=== PATIENT | female | born 1955 | race Caucasian/White ===

== ENCOUNTER 2017-05-14 14:45 | Inpatient (IN) | payer MEDICARE ==
[~2017-05-14] VITALS: Ht 157.5 cm; Wt 100.9 kg
[2017-05-14 14:57] VITALS: BP 140/88
--- NOTE | 2017-05-14 15:52 | Emergency Room Report ---
History of Present Illness Time Seen by 1510 Presenting Problem in Triage Pt arrived:Walked Presenting Problem:ABSCESS VAGINAL AREA BEGAN MONDAY Onset of symptoms date/time:/ or onset unknown for:MEDICAL HX UNKNOWN Treatment Prior to Arrival: [employer] Provided by: Sepsis Risk Assessment: Temp: 97.7 B/P: 140/88 MAP: 105 Pulse: 70 Resp: 18 Recent fever? N Clinical Suspician of Infection? N Mental Status: 1 - Regular (Normal Baseline) Sepsis Risk:Low Sepsis Risk Have you (or family members/close friends) recently traveled outside the [place]? N If Yes, where/when: Have you had exposure to infectious disease within the past month? N TB? Other? Specify: 62 years old white female diabetic nonsmoker who presented with progressive swelling of the RIGHT labia. She admits to having fever and chills but she denies checking her sugar lately. She has no vomiting no diarrhea. No vaginal discharge. She is not sexually active. Source patient, RN notes reviewed, family Exam Limitations no limitations ALLERGIES Coded Allergies: naproxen (From ALEVE) (Intermediate, P-[id number]/THROAT 10/29/16) oxytetracycline (From TERRAMYCIN) (Intermediate, 10/29/16) tetracycline (Intermediate, NA-SEDATION 10/29/16) Home Medications Active Scripts Lisinopril (Lisinopril 40MG) 40 MG PO BID #60 TAB Ref 1 Prov: 01/20/16 Fluoxetine Hcl (Fluoxetine) 20 MG PO DAILY #30 TAB Ref 2 Prov: 01/20/16 MUPIROCIN 2% (Bactroban Oint) 1 TWILA TP BID #1 TUBE Prov: 11/13/16 Reported Medications METFORMIN HCL (Metformin) 1,000 MG PO DAILY Montelukast Sodium 10 MG PO QHS #30 Rosuvastatin Calcium (Crestor) 10 MG PO QHS #30 Levothyroxine Sodium (Levothyroxine 0.137MG) 0.137 MG PO DAILY #60 History Medical History General CAD? No Angina: Yes MT: No Hypertension? Yes Hyperlipidemia? Yes CHF? Yes DVT? No PE? No COPD? Yes Asthma? Yes Anemia? No GERD? No Gastric ulcers? No GI Bleed? No Hernia? No Thyroid Problems? Yes Hypothyroidism? Yes CVA? No Seizures? No Diabetes? Yes Insulin Dependent: No Insulin Pump: No Home FSBS? Yes Renal Insuffiency? No End Stage Renal Disease? No UTI? No Stones? No BPH? No GB Disease: Yes Nephritic Syndrome? No Asplenia? No Hepatitis? No Sickle Cell Disease? No Arthritis? Yes Migraines? No Cataracts? No Glaucoma? No MRSA? No HIV? No TB? No Anxiety? No Depression? No Cancer? No More? No Immunization Hx DT/Tetanus 5-10 Years Ago Pneumonia Received In Past Surgical Hx Previous Surgery?Y GallbladdER Tubal Ligation Family History Family Hx Diabetes No CAD Yes Hypertension Yes Hyperlipidemia No Cancer Yes TB No Social History Smoking Hx Smoker: Never Smoker Tobacco: No Alcohol Alcohol: No Review of Systems All Other Systems Reviewed and Negative Constitutional no symptoms reported Eyes no symptoms reported ENT no symptoms reported. Respiratory no symptoms reported Cardiovascular no symptoms reported Gastrointestinal no symptoms reported Genitourinary see HPI. Musculoskeletal no symptoms reported Skin no symptoms reported Psychiatric/Neurological no symptoms reported Physical Exam Vital Signs Vital Signs Date Time Temp Pulse Resp B/P Pulse O2 O2 Flow FiO2 Ox Delivery Rate 05/14 1637 72 16 141/78 98 05/14 1457 97.7 70 18 140/88 98 - WBC >12,000 or <4,000 or 10% bands? 2 or more SIRS Criteria Met? B/P:140/88 MAP:105 Creatinine >2.0? UA output<0.5ml/kg/hr for 2 hrs? Platelet count >100,000? Lactate >2.0mmol/1? INR >1.2 or PTT > than 60 sec? Evidence of Organ Dysfunction? Provider documented clinical suspician of infection? N Sepsis Criteria Count: 0 Sepsis Risk: Low Sepsis Risk General Appearance normal appearance, WD/WN Eye Exam - bilateral eye normal exam, bilateral eye PERRL, bilateral eye EOMI Ear, Nose, Throat hearing grossly normal, normal ENT inspection Neck normal inspection, non-tender, supple, full range of motion Respiratory Status Yes: trachea midline, chest symmetrical, non tender chest. No: respiratory distress. Lung Sounds bilateral: normal breath sounds, lungs clear. Cardiovascular normal exam, regular rate/rhythm, no peripheral edema, no gallop, no JVD, no murmur, no rub, normal peripheral pulses Gastrointestinal normal bowel sounds, normal exam, non tender, soft, no organomegaly Pelvic 12 X 4 CM OBLONG right LABIAL SWELLING UNABLE TO ADVANCE FOR A PELVIC EXAM DUE TO DISCOMFORT AND PAIN, NO PALPABLE INGUINAL LYMPHADENOPATHY. Neurologic alert, director acute II-XII nml as tested, normal exam, oriented x 3 Skin intact, normal color, warm/dry Medical Decision Making LABS/Meds/Orders Pt receiving controlled substance in ED? No Results/Orders Laboratory Tests 05/14/17 1613: POC Glucose Pending 05/14/17 1610: Lactic Acid 1.7 05/14/17 1610: Sodium 131 L, Potassium 3.9, Chloride 95 L, Carbon Dioxide 28, BUN 11, Creatinine 1.1 H, Estimated Creat Clear 88, Estimated GFR (MDRD) 51 L, Glucose 319 H, Calcium 9.3, Total Bilirubin 0.7, AST 6 L, ALT 12, Alkaline Phosphatase 127 H, Total Protein 9.0 H, Albumin 2.9 L, Globulin 6.1 H, Albumin/Globulin Ratio 0.5 L, WBC 15.9 H, RBC 4.50, Hgb 12.9, Hct 39.4, MCV 87.7, RDW 12.4, Plt Count 355, MPV 8.0, Gran % 80.3 H, Gran # 12.8 H, Total Counted 100, Lymphocytes % 12.5, Monocytes % 5.1, Eosinophils % 1.8, Basophils % 0.3, Neutrophils 76, Band Neutrophils 1, Lymphocytes (Manual) 15, Lymphocytes # 2.0, Monocytes (Manual) 8, Monocytes # 0.8, Eosinophils # 0.3, Basophils # 0.0, Platelet Estimate NORMAL, PUBS MCHC 33.0, MCH 28.9 Current Medication Orders Sig/Jessica Start time Last Medication Dose Route Stop Time Status Admin Potassium Chloride 20 MEQ ONCE ONE 05/14 1645 DC PO 05/14 1646 Sodium Chloride 250 ML .STK-MED ONE 05/14 1633 DC IV Sodium Chloride 0 .STK-MED ONE 05/14 1631 DC IV Vancomycin HCl 1,750 MG ONCE ONE 05/14 1630 AC 05/14 Sodium Chloride 250 ML IV 05/14 1829 1644 Vancomycin HCl 0 .STK-MED ONE 05/14 1625 DC .ROUTE Sodium Chloride 250 ML .STK-MED ONE 05/14 1624 DC IV Vancomycin HCl See Dose ONCE ONE 05/14 1600 DC Insts (1) IV 05/14 1601 Dose Instructions: (1)Vancomycin HCl: CONTACT PHARMACY FOR DOSING Orders Procedure Date/time Status Decision to admit 05/14 1650 Active FINGERSTICK BLOOD SUGAR 05/14 1613 Active DIFFERENTIAL-WBC 05/14 1610 Complete CULTURE, BLOOD 05/14 1552 Active LACTIC ACID 05/14 1552 Complete CBC WITH AUTO DIFF 05/14 1552 Complete CHEM 12 PROFILE 05/14 1552 Complete Departure Departure Time of Disposition 1550 Disposition Still a Patient Clinical Impression Primary Impression: Cellulitis of labia majora Secondary Impressions: Uncontrolled diabetes mellitus Condition STABLE Referrals Kishor Shabazz MD (Family) Additional Instructions Obtained blood work blood cultures start IV antibiotics contacted Dr. Shabazz for admission who accepted. Dr. Hamlin was notified and he will see her as a consult. Discharge Counseling Counseled pt/family regarding diagnosis, test results, follow up needs ED Critical Care Critical Care No If Critical Care minutes are documented, the time involved in the performance of seperately reportable procedures was not counted toward critical care time documented. I directly delivered medical care to this critically ill and/or injured patient. Timely evaluation and treatment was necessary to address the significant organ system(s) dysfunction present in this patient. at 1656
[2017-05-14 16:20] LABS: HEMOGLOBIN 12.9 g/dL (12.2-16.2); LYMPH % 12.5 % (10-50.0)
[2017-05-14 16:37] LABS: NEUTROPHILS 76 % (42-76)
[2017-05-14 17:37] VITALS: BP 141/78
[2017-05-14 18:15] VITALS: BP 147/85
[2017-05-14 19:51] VITALS: BP 104/70
--- NOTE | 2017-05-14 20:27 | CONSULT NOTE ---
Standard Demographics Patient Demo Date of Consultation: 05/14/17 Referring Provider: Kishor Shabazz MD Reason for Consultation: RIGHT labial abscess PRIMARY DIAGNOSIS: CELLULITIS OF THE RIGHT LABIA Allergies: Coded Allergies: naproxen (From ALEVE) (Intermediate, [id number]/THROAT 10/29/16) oxytetracycline (From TERRAMYCIN) (Intermediate, 10/29/16) tetracycline (Intermediate, NA-SEDATION 10/29/16) History of Present Illness Chief Complaint: RIGHT labial abscess History of Present Illness: She has a 5 day history of swelling in the RIGHT labia. She said it has been getting worse. She says she gets lots of abscesses all over her body. Past Medical History Reports: hypertension, diabetes mellitus, obesity. Surgical History Previous Surgery?Y GallbladdER Tubal Ligation Allergies Coded Allergies: naproxen (From ALEVE) (Intermediate, C-[id number]/THROAT 10/29/16) oxytetracycline (From TERRAMYCIN) (Intermediate, 10/29/16) tetracycline (Intermediate, NA-SEDATION 10/29/16) Medications: Active Scripts Lisinopril (Lisinopril 40MG) 40 MG PO BID #60 TAB Ref 1 Prov: 01/20/16 Fluoxetine Hcl (Fluoxetine) 20 MG PO DAILY #30 TAB Ref 2 Prov: 01/20/16 Reported Medications FLUTICASONE/SALMETEROL (Advair 250-50 Diskus) 1 PUFF IN BID #60 METFORMIN HCL (Metformin) 1,000 MG PO DAILY Montelukast Sodium 10 MG PO QHS #30 Rosuvastatin Calcium (Crestor) 10 MG PO QHS #30 Levothyroxine Sodium (Levothyroxine 0.137MG) 0.137 MG PO DAILY #60 Family history Negative for: unknown. Smoking Hx Tobacco: No Smoker: Never Smoker Type: N/A Packs/day: N/A Are you/the child exposed to second-hand smoke: Yes Alcohol Alcohol: No Hx of Drug Use Drug Use? No Patient's support system is fair Review of Systems Constitutional No: chills. Skin Positive for: swelling. Immune/allergy No: allergy. Eyes No: blurry vision. Systems reviewed and negative: GI, , allergy/immunity, cardiovascular, constitutional, endocrine, Ear/Nose/Throat, eyes, heme, musculoskeletal, neuro, psychiatric, respiratory, skin Physical Exam VS/I&O Vital Signs Date Time Temp Pulse Resp B/P Pulse O2 O2 Flow FiO2 Ox Delivery Rate 05/14 1951 98.3 70 20 104/70 96 ROOM AIR 05/14 1815 98.5 76 20 147/85 99 ROOM AIR 05/14 1737 72 05/14 1737 97.7 72 16 141/78 05/14 1737 98 ROOM AIR 05/14 1712 97.7 72 16 141/78 98 05/14 1637 72 16 141/78 98 05/14 1457 97.7 70 18 140/88 98 Exam General appearance no acute distress, alert, well nourished, awake Neck full ROM Respiratory clear to auscultation Cardiovascular regular rate and rhythm Abdomen flat, no distention Genitourinary (female) abnormal external exam (she has extreme swelling and i ) Findings/Data Laboratory Tests 05/14/17 1731: POC Glucose 283 H 05/14/171609: Lactic Acid 1.7 05/14/17 161: Sodium 131 L, Potassium 3.9, Chloride 95 L, Carbon Dioxide 28, BUN 11, Creatinine 1.1 H, Estimated Creat Clear 88, Estimated GFR (MDRD) 51 L, Glucose 319 H, Calcium 9.3, Total Bilirubin 0.7, AST 6 L, ALT 12, Alkaline Phosphatase 127 H, Total Protein 9.0 H, Albumin 2.9 L, Globulin 6.1 H, Albumin/Globulin Ratio 0.5 L, WBC 15.9 H, RBC 4.50, Hgb 12.9, Hct 39.4, MCV 87.7, RDW 12.4, Plt Count 355, MPV 8.0, Gran % 80.3 H, Gran # 12.8 H, Total Counted 100, Lymphocytes % 12.5, Monocytes % 5.1, Eosinophils % 1.8, Basophils % 0.3, Neutrophils 76, Band Neutrophils 1, Lymphocytes (Manual) 15, Lymphocytes # 2.0, Monocytes (Manual) 8, Monocytes # 0.8, Eosinophils # 0.3, Basophils # 0.0, Platelet Estimate NORMAL, PUBS MCHC 33.0, MCH 28.9 Microbiology 05/14 1610 BLOOD: Anaerobic Blood Culture - RECD 05/14 1610 BLOOD: Aerobic Blood Culture - RECD 05/14 1610 BLOOD: Anaerobic Blood Culture - RECD 05/14 1610 BLOOD: Aerobic Blood Culture - RECD Results labs reviewed Plan Plan: She has what appears to be an abscess of the RIGHT labia majora. There is some fluctuation. She is extremely edematous and tender. We will continue with antibiotics overnight. She will be nothing by mouth after midnight. We will have her sign consents for surgery. We will do an incision and drainage of this RIGHT labial abscess tomorrow. I discussed the risks of surgery that includes bleeding , infection, injury to adjacent structures. We discussed the need for packing of the incision. All questions were answered and consents were signed. at 2027
[2017-05-14 20:50] VITALS: BP 104/70
[2017-05-15] VITALS (15 sets, daily range): BP systolic 96–142; BP diastolic 54–86
[2017-05-15 06:45] LABS: LYMPH # 2.3 K/mm3 (0.7-4.5); LYMPH % 13.5 % (10-50.0)
[2017-05-15 06:51] LABS: HEMOGLOBIN 11.7 g/dL (12.2-16.2)
--- NOTE | 2017-05-15 07:32 | PHARMACY CLINIC NOTE ---
Patient Demographics Patient Demographics Admission date: 05/14/17 Date: 05/15/17 Time: 0732 Allergies Coded Allergies: naproxen (From ALEVE) (Intermediate, [id number]/THROAT 10/29/16) oxytetracycline (From TERRAMYCIN) (Intermediate, 10/29/16) tetracycline (Intermediate, NA-SEDATION 10/29/16) HEIGHT- FT: 5 IN: 2.00 K.914 VTE General Information Labs: Laboratory Tests 05/15 05/14 0615 1610 Hematology Hgb (12.2 - 16.2 g/dL) 11.7 L 12.9 Hct (37.0 - 47.0 %) 35.4 L 39.4 Plt Count (142 - 424 K/mm3) 335 355 Disclaimer The following section includes nursing documentation that has been pulled in for pharmacy review. Patient's VTE score: 2 Patient's VTE Risk: VERY LOW RISK Clinical trial participant? No VTE prophylaxis NQF [id number] VTE prophylaxis ordered? Yes Type of prophylaxis/treatment: FREDO at 0732
--- NOTE | 2017-05-15 07:32 | PHARMACY CLINIC NOTE ---
Patient Demographics Patient Demographics Admission date: 05/14/17 Date: 05/15/17 Time: 0732 Allergies Coded Allergies: naproxen (From ALEVE) (Intermediate, H-[id number]-SICE/THROAT 10/29/16) oxytetracycline (From TERRAMYCIN) (Intermediate, 10/29/16) tetracycline (Intermediate, NA-SEDATION 10/29/16) HEIGHT- FT: 5 IN: 2.00 K.914 VTE General Information Labs: Laboratory Tests 05/15 05/14 0615 1610 Hematology Hgb (12.2 - 16.2 g/dL) 11.7 L 12.9 Hct (37.0 - 47.0 %) 35.4 L 39.4 Plt Count (142 - 424 K/mm3) 335 355 Disclaimer The following section includes nursing documentation that has been pulled in for pharmacy review. Patient's VTE score: 2 Patient's VTE Risk: VERY LOW RISK Clinical trial participant? No VTE prophylaxis NQF [id number] VTE prophylaxis ordered? Yes Type of prophylaxis/treatment: FREDO at 0732
--- NOTE | 2017-05-15 08:58 | HISTORY AND PHYSICAL REPORT ---
See Addendum History and Physical ([facility]CA) Date of admission: 05/14/17 Chief complaint: abscess History: History of Present Illness: Ms Current is a 62 year old female with a history of DM, hypothyroidism, depression, and COPD who presented to [facility] ER with a 4 day history of swelling and pain of her labia. She states that she has had cysts before which have resolved without treatment. She has been applying moist heat to this one and it has progressively worsened. She has had a fever. She is a diabetic but does not monitor her BS. In the ER she was found to have an abscess with edema of the labia. Dr. Mckeon has been consulted and has seen the patient. She was admitted for ABX and will have I&D this AM Past Medical History: Medical History: CAD? No Angina: No GA: No Hypertension? Yes Hyperlipidemia? Yes CHF? Yes DVT? No PE? No COPD? Yes Asthma? Yes Anemia? No GERD? Yes Gastric ulcers? No GI Bleed? No Hernia? No Thyroid Problems? Yes Hypothyroidism? Yes CVA? No Seizures? No Diabetes? Yes Insulin Dependent: No Insulin Pump: No Home FSBS? Yes Renal Insuffiency? No UTI? No Stones? No BPH? No GB Disease: Yes Nephritic Syndrome? No Asplenia? No Hepatitis? No Sickle Cell Disease? No Arthritis? Yes Migraines? No Cataracts? No Glaucoma? No MRSA? No HIV? No TB? No Anxiety? No Depression? Yes Cancer? No More? No Surgical history: Previous Surgery?Y GallbladdER Tubal Ligation Medications: Active Scripts Lisinopril (Lisinopril 40MG) 40 MG PO BID #60 TAB Ref 1 Prov: 01/20/16 Fluoxetine Hcl (Fluoxetine) 20 MG PO DAILY #30 TAB Ref 2 Prov: 01/20/16 Reported Medications METFORMIN HCL (Metformin) 1,000 MG PO BID Dicyclomine Hcl (Dicyclomine Tab) 20 MG PO QIDP PRN diarrhea HYDROCHLOROTHIAZIDE (Hydrochlorothiazide) 25 MG PO DAILY FLUTICASONE/SALMETEROL (Advair 250-50 Diskus) 1 PUFF IN BID #60 Montelukast Sodium 10 MG PO QHS #30 Rosuvastatin Calcium (Crestor) 10 MG PO QHS #30 Levothyroxine Sodium (Levothyroxine 0.137MG) 0.137 MG PO DAILY #60 Allergies: Coded Allergies: naproxen (From ALEVE) (Intermediate, M-[id number]/THROAT 10/29/16) oxytetracycline (From TERRAMYCIN) (Intermediate, 10/29/16) tetracycline (Intermediate, NA-SEDATION 10/29/16) Family History: Family history: Postive for: CAD, DM, adopted, cancer, stroke. Social History: Smoking Hx Tobacco: No Smoker: Former Smoker Type: N/A Packs/day: N/A Are you exposed to second hand Yes Alcohol: Alcohol: No Hx of Drug Use: Drug Use? No Review of Systems: Cardiovascular Positive for: palpitations. No: chest pain, edema. Respiratory No: shortness of air, hemoptysis, non-productive. GI Positive for: GERD, diarrhea. No: abdominal pain, constipation, hematemeis, hematochezia, melena, nausea, vomitting. (female) No: frequency, hematuria. Skin Positive for: swelling (labial). Neurological Positive for: dizziness, headache. No: seizure, syncope. Musculoskeletal Positive for: joint pain (hips and knees). Psychiatric Positive for: depression. Physical Exam: Vital signs: 1ST Vital Signs Result Date Time Pulse Ox 98 05/14 1457 B/P 140/88 05/14 1457 Temp 97.7 05/14 1457 Pulse 70 05/14 1457 Resp 18 05/14 1457 O2 Delivery ROOM AIR 05/14 1737 Exam: General appearance: alert, no acute distress, obese Eyes: anicteric, pupils reactive to light ENT: mucous membranes moist, pharynx normal Neck: non-tender, no carotid bruit, full range of motion, supple, lymphadenopathy (absent), thyroid (normal) Cardiovascular: no peripheral edema, frequent ectopy Respiratory: clear to auscultation (bilat anterior and posterior) ABD: soft, no tenderness, bowel sounds present, obese Extremities: moves all, no calf tenderness, no pedal edema Skin: edema of right labia and lauren area Neuro: alert, oriented, speech clear Lab data: Labs: Laboratory Tests 05/15/17 0619: POC Glucose 293 H 05/15/17 0615: Sodium 133 L, Potassium 4.4, Chloride 99, Carbon Dioxide 27, BUN 12, Creatinine 1.1 H, Estimated Creat Clear 80, Estimated GFR (MDRD) 51 L, Glucose 285 H, Calcium 8.5, WBC 17.3 H, RBC 4.06 L, Hgb 11.7 L, Hct 35.4 L, MCV 87.3, RDW 12.5, Plt Count 335, MPV 7.9, Gran % 78.6, Gran # 13.6 H, Lymphocytes % 13.5, Monocytes % 5.7, Eosinophils % 2.0, Basophils % 0.3, Lymphocytes # 2.3, Monocytes # 1.0, Eosinophils # 0.3, Basophils # 0.1, PUBS MCHC 33.1, MCH 28.9 05/14/17 2059: POC Glucose 314 *H 05/14/17 1731: POC Glucose 283 H 05/14/17 1613: POC Glucose 311 *H 05/14/17 1610: Lactic Acid 1.7 05/14/17 1610: Sodium 131 L, Potassium 3.9, Chloride 95 L, Carbon Dioxide 28, BUN 11, Creatinine 1.1 H, Estimated Creat Clear 88, Estimated GFR (MDRD) 51 L, Glucose 319 H, Calcium 9.3, Total Bilirubin 0.7, AST 6 L, ALT 12, Alkaline Phosphatase 127 H, Total Protein 9.0 H, Albumin 2.9 L, Globulin 6.1 H, Albumin/Globulin Ratio 0.5 L, WBC 15.9 H, RBC 4.50, Hgb 12.9, Hct 39.4, MCV 87.7, RDW 12.4, Plt Count 355, MPV 8.0, Gran % 80.3 H, Gran # 12.8 H, Total Counted 100, Lymphocytes % 12.5, Monocytes % 5.1, Eosinophils % 1.8, Basophils % 0.3, Neutrophils 76, Band Neutrophils 1, Lymphocytes (Manual) 15, Lymphocytes # 2.0, Monocytes (Manual) 8, Monocytes # 0.8, Eosinophils # 0.3, Basophils # 0.0, Platelet Estimate NORMAL, PUBS MCHC 33.0, MCH 28.9 Microbiology 05/14 1610 BLOOD: Anaerobic Blood Culture - RECD 05/14 1610 BLOOD: Aerobic Blood Culture - RECD 05/14 1610 BLOOD: Anaerobic Blood Culture - RECD 05/14 1610 BLOOD: Aerobic Blood Culture - RECD Diagnosis(es): 1. Cellulitis of labia majora 2. Uncontrolled diabetes mellitus 3. Arthritis 4. Hypothyroidism 5. COPD (chronic obstructive pulmonary disease) 6. HTN (hypertension) Plan: preop CXR and EKG; continue with ABX; for surgery today/Dr. Mckeon at 0958
--- NOTE | 2017-05-15 09:27 | CONSULT NOTE ---
Pharmacokinetic Consult Date of consult: 05/15/17 Time of consult: 914 Referring provider: DR. WORLEY Reason for consult: VANCOMYCIN DOSING Allergies: Coded Allergies: naproxen (From ALEVE) (Intermediate, D-[id number]/THROAT 10/29/16) oxytetracycline (From TERRAMYCIN) (Intermediate, 10/29/16) tetracycline (Intermediate, NA-SEDATION 10/29/16) Home Medications: Active Scripts Lisinopril (Lisinopril 40MG) 40 MG PO BID #60 TAB Ref 1 Prov: 01/20/16 Fluoxetine Hcl (Fluoxetine) 20 MG PO DAILY #30 TAB Ref 2 Prov: 01/20/16 Reported Medications FLUTICASONE/SALMETEROL (Advair 250-50 Diskus) 1 PUFF IN BID #60 METFORMIN HCL (Metformin) 1,000 MG PO DAILY Montelukast Sodium 10 MG PO QHS #30 Rosuvastatin Calcium (Crestor) 10 MG PO QHS #30 Levothyroxine Sodium (Levothyroxine 0.137MG) 0.137 MG PO DAILY #60 Height (feet): 5 Height (inches): 2.00 Medical History: CAD? No Angina: Yes [place]: No Hypertension? Yes Hyperlipidemia? Yes CHF? Yes DVT? No PE? No COPD? Yes Asthma? Yes Anemia? No GERD? No Gastric ulcers? No GI Bleed? No Hernia? No Thyroid Problems? Yes Hypothyroidism? Yes CVA? No Seizures? No Diabetes? Yes Insulin Dependent: No Insulin Pump: No Home FSBS? Yes Renal Insuffiency? No UTI? No Stones? No BPH? No GB Disease: Yes Nephritic Syndrome? No Asplenia? No Hepatitis? No Sickle Cell Disease? No Arthritis? Yes Migraines? No Cataracts? No Glaucoma? No MRSA? No HIV? No TB? No Anxiety? No Depression? No Cancer? No More? No Labs: Laboratory Tests 05/15/17 0619: POC Glucose 293 H 05/15/17 0615: Sodium 133 L, Potassium 4.4, Chloride 99, Carbon Dioxide 27, BUN 12, Creatinine 1.1 H, Estimated Creat Clear 80, Estimated GFR (MDRD) 51 L, Glucose 285 H, Calcium 8.5, WBC 17.3 H, RBC 4.06 L, Hgb 11.7 L, Hct 35.4 L, MCV 87.3, RDW 12.5, Plt Count 335, MPV 7.9, Gran % 78.6, Gran # 13.6 H, Lymphocytes % 13.5, Monocytes % 5.7, Eosinophils % 2.0, Basophils % 0.3, Lymphocytes # 2.3, Monocytes # 1.0, Eosinophils # 0.3, Basophils # 0.1, PUBS MCHC 33.1, MCH 28.9 05/14/179: POC Glucose 314 *H 05/14/17 1731: POC Glucose 283 H 05/14/17 1613: POC Glucose 311 *H 05/14/17 1610: Lactic Acid 1.7 05/14/17 1610: Sodium 131 L, Potassium 3.9, Chloride 95 L, Carbon Dioxide 28, BUN 11, Creatinine 1.1 H, Estimated Creat Clear 88, Estimated GFR (MDRD) 51 L, Glucose 319 H, Calcium 9.3, Total Bilirubin 0.7, AST 6 L, ALT 12, Alkaline Phosphatase 127 H, Total Protein 9.0 H, Albumin 2.9 L, Globulin 6.1 H, Albumin/Globulin Ratio 0.5 L, WBC 15.9 H, RBC 4.50, Hgb 12.9, Hct 39.4, MCV 87.7, RDW 12.4, Plt Count 355, MPV 8.0, Gran % 80.3 H, Gran # 12.8 H, Total Counted 100, Lymphocytes % 12.5, Monocytes % 5.1, Eosinophils % 1.8, Basophils % 0.3, Neutrophils 76, Band Neutrophils 1, Lymphocytes (Manual) 15, Lymphocytes # 2.0, Monocytes (Manual) 8, Monocytes # 0.8, Eosinophils # 0.3, Basophils # 0.0, Platelet Estimate NORMAL, PUBS MCHC 33.0, MCH 28.9 Microbiology 05/14 1610 BLOOD: Anaerobic Blood Culture - RECD 05/14 1610 BLOOD: Aerobic Blood Culture - RECD 05/14 1610 BLOOD: Anaerobic Blood Culture - RECD 05/14 1610 BLOOD: Aerobic Blood Culture - RECD Problem List: 1. Cellulitis of labia majora Plan: BASED ON PATIENT'S FACTORS, RECOMMEND CONTINUING WITH VANCOMYCIN 1750 MG Q24H AT THIS TIME. PHARMACY WILL FOLLOW UP DAILY AND ADJUST APPROPRIATE. MATILDA PATINOD at 7918
--- NOTE | 2017-05-15 10:27 | Operative Note ---
Procedure/Operative Record Procedure Date of procedure: 05/15/17 Pre-Op Dx: RIGHT labial abscess Post-Op Dx: RIGHT labial abscess Procedure performed: Incision, draining and packing of RIGHT labial abscess Surgeon: Dr. Scar Mckeon Sheet Roller Operator(s): None Anesthesia: Jimmy Rodriguez EBL (ml): 25 Clinical note: She is a 8-year-old lady who complains of severe RIGHT labial pain. On examination she had a large 3-4 cm labial abscess. She is a diabetic and hypertensive. Has heart disease. Operative findings: She had a large labial abscess on the RIGHT labia. It was filled with purulent material. It was approximately 4 cm to 5 cm in size. It was extremely edematous especially in the lower aspect of her labia. Her labia are also quite large. Operative note: She was taken to the operating room where LMA anesthesia was found be adequate. She was prepped and draped in the normal sterile fashion in the lithotomy position. I made a small incision overlying her labia and drained approximately 20 mL of purulent material. I then rinsed the inside of the abscess cavity with normal saline. I then packed the abscess cavity with iodoform gauze. I cauterized around the edge of the incision. She tolerated the procedure well and was taken to the recovery room in excellent condition. All sponge and it's when counts were correct. The estimated blood loss was less than 25 mL. Conplications: None Specimens: Aerobic and anaerobic cultures. at 4019
--- NOTE | 2017-05-15 10:40 | Anesthesia Record ---
Anesthesia Record Part I Total IV fluids: 400 EBL (ml): 25 Urine Output: 0 B/P: 95/72 % SaO2: 98 Pulse: 61 Resps: 16 Temp: 97.4 Patient is: Drowsy, Stable Stable to PACU at: 1030 at 1039
--- NOTE | 2017-05-15 10:40 | Anesthesia Record ---
Anesthesia Record Part II Discharge time: 1100 Destination: Second Floor PACU nurse assessment review? Yes Patient is: Stable Anesthesia complications? No at 1040
--- NOTE | 2017-05-15 11:23 | RADIOLOGY REPORT PS360 ---
CHEST(2 VIEWS-NOT PORTABLE) HISTORY: HX of COPDcongestion. Patient Age: 62 years: Female Ordering Physician: Kishor Shabazz MD TECHNIQUE: PA and lateral chest COMPARISON :Previous chest film 10/29/2016 FINDINGS No significant interval change. No new findings. No focal pneumonia. Upper normal markings at right base may reflect some minor atelectasis. Only fair inspiration with diaphragms at the anterior fourth right. Upper lung parmar unremarkable. Left lung clear. Heart upper normal in size with with left ventricular configuration. Ekaterina and mediastinal structures satisfactory. Small calcified hilar nodes bilaterally reflect old granulomatous disease. IMPRESSION: Stable chest nothing definitely acute.
--- NOTE | 2017-05-15 12:30 | CONSULT NOTE ---
Standard Demographics Patient Demo Date of Consultation: 05/15/17 Referring Provider: Scar Mckeon MD Reason for Consultation: Abnormal EKG, history of CHF PRIMARY DIAGNOSIS: CELLULITIS OF THE RIGHT LABIA Problem list Problem list: 1. DM 2. Remote Tobacco use, Stopped at age 23 A. COPD 3. HTN 4. Cardiomyopathy A. Cardiac cath, 01/2016, normal coronaries with LVEF of 50% B. Echo, 01/2016, biatrial enlargement (left >right), LV dilatation with EF 30- 40%, Mild MAC with moderate MR. No aortic stenosis. C. History of congestive heart failure approximate 2010. 5. Labial abscess, 04/2017, s/p I&D 6. Abnormal EKG with incomplete LBBB 7. Hyperlipidemia 8. Hypothyroidism History of present illness: History of present illness: 62-year-old white female who is diabetic was admitted for increasing discomfort in her groin area. Patient was found to have a labial abscess and was admitted for IV antibiotics. She underwent I and D today per Dr. Hamlin. Cardiology consulted due to patient's history of cardiomyopathy, congestive heart failure and abnormal electrocardiogram. Patient denies any recent chest pain, pressure or shortness of breath with or without exertion beyond her normal shortness of breath associated with her chronic obstructive pulmonary disease. Past Medical History: General: Hypertension Yes CVA No Seizures No TB No COPD Yes Asthma Yes Diabetes Yes Insulin Dependent No Insulin Pump No Angina No AK No Hyperlipidemia Yes Urinary No Cancer No Rheumatic H.D. No Ulcers No MRSA No GB Disease Yes Other THYROID, CHF Past Surgical HX: Previous Surgery?Y GallbladdER Tubal Ligation Allergies Coded Allergies: naproxen (From ALEVE) (Intermediate, [id number]/THROAT 10/29/16) oxytetracycline (From TERRAMYCIN) (Intermediate, 10/29/16) tetracycline (Intermediate, NA-SEDATION 10/29/16) Home medications: Active Scripts Lisinopril (Lisinopril 40MG) 40 MG PO BID #60 TAB Ref 1 Prov: 01/20/16 Fluoxetine Hcl (Fluoxetine) 20 MG PO DAILY #30 TAB Ref 2 Prov: 01/20/16 Reported Medications METFORMIN HCL (Metformin) 1,000 MG PO BID Dicyclomine Hcl (Dicyclomine Tab) 20 MG PO QIDP PRN diarrhea HYDROCHLOROTHIAZIDE (Hydrochlorothiazide) 25 MG PO DAILY FLUTICASONE/SALMETEROL (Advair 250-50 Diskus) 1 PUFF IN BID #60 Montelukast Sodium 10 MG PO QHS #30 Rosuvastatin Calcium (Crestor) 10 MG PO QHS #30 Levothyroxine Sodium (Levothyroxine 0.137MG) 0.137 MG PO DAILY #60 Current Medications: Current Medications Lisinopril 40 MG DAILY PO Vancomycin HCl 1,750 MG Q24H IV Sodium Chloride 250 ML Morphine Sulfate 0 .STK-MED ONE .ROUTE (DC) Lidocaine 35 GM ONCE ONE TP (DC) Meperidine HCl 12.5 MG [id number] PRN IV Meperidine HCl 25 MG [id number] PRN IV Morphine Sulfate 2 MG [id number] PRN IV Ondansetron HCl 4 MG Q4HP PRN IV Sevoflurane 0 .STK-MED ONE IN (DC) Lidocaine HCl 0 .STK-MED ONE IJ (DC) Ondansetron HCl 0 .STK-MED ONE .ROUTE (DC) Propofol 0 .STK-MED ONE IV (DC) Lactated Ringer's 1,000 ML .STK-MED ONE IV (DC) Fentanyl Citrate 0 .STK-MED ONE IV (DC) Midazolam HCl 0 .STK-MED ONE .ROUTE (DC) Fluoxetine HCl 20 MG DAILY PO Carvedilol 25 MG BID PO Levothyroxine Sodium 0.137 MG DAILY PO Insulin Human [rDNA origin] 0 .STK-MED ONE SC (DC) Metformin HCl 500 MG BIDD PO Lactated Ringer's 1,000 ML .STK-MED ONE IV (DC) Oxycodone HCl 0 .STK-MED ONE .ROUTE (DC) Oxycodone HCl 1 MG Q4HP PRN PO Oxycodone HCl 2 MG Q4HP PRN PO Sodium Chloride 10 ML PRN PRN IV Insulin Human [rDNA origin] 0 .STK-MED ONE SC (DC) Sodium Chloride 250 ML .STK-MED ONE IV (DC) Vancomycin HCl 0 .STK-MED ONE .ROUTE (DC) Sodium Chloride 50 ML .STK-MED ONE IV (DC) Sodium Chloride 50 ML .STK-MED ONE IV (DC) Piperacillin Sod/Tazobactam Sod 0 .STK-MED ONE .ROUTE (DC) Sodium Chloride 100 ML .STK-MED ONE IV (DC) Piperacillin Sod/Tazobactam Sod 0 .STK-MED ONE .ROUTE (DC) Sodium Chloride 50 ML .STK-MED ONE IV (DC) Sodium Chloride 100 ML .STK-MED ONE IV (DC) Piperacillin Sod/Tazobactam Sod 0 .STK-MED ONE .ROUTE (DC) Insulin Human [rDNA origin] 10 UNITS ONCE ONE SC (DC) Diagnostic Test (Pha) 1 EACH W/MEALS&HS FS Insulin Human [rDNA origin] SEE ADMIN CRITERIA W/MEALS&HS SC Oxycodone HCl DOSE=1 OR 2 TABS; INITIATE DOSING WITH 1 TABLET. MAY INCREASE TO TWO TABLETS FOR PAIN UNRELIEVED BY 1 TABLET. Q4HP PRN PO (DC) Sodium Chloride 50 ML .STK-MED ONE IV (DC) Sodium Chloride 50 ML .STK-MED ONE IV (DC) Piperacillin Sod/Tazobactam Sod 0 .STK-MED ONE .ROUTE (DC) Potassium Chloride/Sodium Chloride 1,000 ML .[id number] IV Acetaminophen 650 MG Q4HP PRN PO Diagnostic Test (Pha) 1 EACH W/MEALS&HS FS (DC) Influenza Virus Vaccine Quadrival 0.5 ML PRN PRN IM Insulin Human [rDNA origin] 6 UNITS ONCE ONE SC (DC) Insulin Human [rDNA origin] SEE ADMIN CRITERIA ONCE ONE SC (DC) Nicotine 21 MG DAILYP PRN TD Ondansetron HCl 4 MG Q6HP PRN IV Piperacillin Sod/Tazobactam Sod 3.375 GM Q6 IV Sodium Chloride 50 ML Vancomycin HCl 1,250 MG Q12H IV (DC) Sodium Chloride 250 ML Insulin Human [rDNA origin] 0 .STK-MED ONE SC (DC) Potassium Chloride 0 .STK-MED ONE PO (DC) Potassium Chloride 20 MEQ ONCE ONE PO (DC) Sodium Chloride 250 ML .STK-MED ONE IV (DC) Sodium Chloride 0 .STK-MED ONE IV (DC) Vancomycin HCl 1,750 MG ONCE ONE IV (DCr) Sodium Chloride 250 ML Vancomycin HCl 0 .STK-MED ONE .ROUTE (DC) Sodium Chloride 250 ML .STK-MED ONE IV (DC) Vancomycin HCl CONTACT PHARMACY FOR DOSING ONCE ONE IV (DC) Immunization HX DT/Tetanus 5-10 Years Pneumonia RECEIVED IN PAST TB Test in last year No Family history Family HX Family Hx Insignificant No Diabetes No CAD Yes Hypertension Yes Hyperlipidemia No Cancer Yes TB No Social Hx: Smoking HX Tobacco No Type N/A Packs/day N/A Are you/the child exposed to second-hand smoke: Yes Alcohol Alcohol: No Hx of Drug Use Drug Use? No Review of systems: Constitutional see HPI, chills. Respiratory SOB with excertion. Cardiovascular No no symptoms reported Gastrointestinal/Abdominal No no symptoms reported Genitourinary see HPI. Musculoskeletal No: no symptoms reported. Neurological No: no symptoms reported. Exam: Admission Vital Signs: 1ST Vital Signs Result Date Time Pulse Ox 98 05/14 1457 B/P 140/88 05/14 1457 Temp 97.7 05/14 1457 Pulse 70 05/14 1457 Resp 18 05/14 1457 O2 Delivery ROOM AIR 05/14 1737 Last Vital Signs: Vital Signs Result Date Time Pulse Ox 96 05/15 1124 B/P 109/60 05/15 1124 Pulse 62 05/15 1124 Resp 16 05/15 1124 Temp 97.4 05/15 1110 O2 Delivery ROOM AIR 05/15 1105 Exam General appearance: alert, awake, no acute distress Neck: no carotid bruit, no JVD Cardiovascular: regular rate & rhythm, systolic ejection murmur grade 2/6 noted along the LEFT sternal border Respiratory: clear to auscultation, good air movement ABD: soft, no tenderness Extremities: moves all, no peripheral edema Neuro: patient still drowsy from anesthesia but awakens easily and answers questions appropriately. Laboratory data: Laboratory Tests 05/15/17 1146: POC Glucose 292 H 05/15/17 1035: POC Glucose 310 *H 05/15/17 0619: POC Glucose 293 H 05/15/17 0615: Sodium 133 L, Potassium 4.4, Chloride 99, Carbon Dioxide 27, BUN 12, Creatinine 1.1 H, Estimated Creat Clear 80, Estimated GFR (MDRD) 51 L, Glucose 285 H, Calcium 8.5, WBC 17.3 H, RBC 4.06 L, Hgb 11.7 L, Hct 35.4 L, MCV 87.3, RDW 12.5, Plt Count 335, MPV 7.9, Gran % 78.6, Gran # 13.6 H, Lymphocytes % 13.5, Monocytes % 5.7, Eosinophils % 2.0, Basophils % 0.3, Lymphocytes # 2.3, Monocytes # 1.0, Eosinophils # 0.3, Basophils # 0.1, PUBS MCHC 33.1, MCH 28.9 05/14/179: POC Glucose 314 *H 05/14/17 1731: POC Glucose 283 H 05/14/17 1613: POC Glucose 311 *H 05/14/17 1610: Lactic Acid 1.7 05/14/17 1610: Sodium 131 L, Potassium 3.9, Chloride 95 L, Carbon Dioxide 28, BUN 11, Creatinine 1.1 H, Estimated Creat Clear 88, Estimated GFR (MDRD) 51 L, Glucose 319 H, Calcium 9.3, Total Bilirubin 0.7, AST 6 L, ALT 12, Alkaline Phosphatase 127 H, Total Protein 9.0 H, Albumin 2.9 L, Globulin 6.1 H, Albumin/Globulin Ratio 0.5 L, WBC 15.9 H, RBC 4.50, Hgb 12.9, Hct 39.4, MCV 87.7, RDW 12.4, Plt Count 355, MPV 8.0, Gran % 80.3 H, Gran # 12.8 H, Total Counted 100, Lymphocytes % 12.5, Monocytes % 5.1, Eosinophils % 1.8, Basophils % 0.3, Neutrophils 76, Band Neutrophils 1, Lymphocytes (Manual) 15, Lymphocytes # 2.0, Monocytes (Manual) 8, Monocytes # 0.8, Eosinophils # 0.3, Basophils # 0.0, Platelet Estimate NORMAL, PUBS MCHC 33.0, MCH 28.9 Microbiology Date/Time Procedure - Status Source Growth 05/14 1610 Anaerobic Blood Culture - RECD BLOOD 05/14 1610 Aerobic Blood Culture - RECD BLOOD 05/14 1610 Anaerobic Blood Culture - RECD BLOOD 05/14 1610 Aerobic Blood Culture - RECD BLOOD Plan: Assessment: 1. Labial abscess, status post I and D. 2. History of cardiomyopathy, currently clinically stable. Will obtain an echocardiogram for follow-up. Continue carvedilol and lisinopril. 3. History of mitral regurgitation, will follow-up with echocardiogram. 4. Abnormal EKG prior to surgery showed RIGHT axis deviation and an isolated couplet. Suspected lead misplacement since previous EKG's in the past showed LEFT axis deviation. Repeat EKG is sinus bradycardia with LAD and is more consistent with prior EKG's. She continues to have incomplete LEFT bundle branch block and prolonged QT interval at 504 ms. Recommend telemetry to assess for ventricular arrhythmias in setting of QT prolongation. Check magnesium level. 5. DM 6. HTN Recommendations: See above. at 1230
--- NOTE | 2017-05-15 21:00 | RADIOLOGY REPORT PS360 ---
PROCEDURE: 2-D M-mode and color Doppler study INDICATIONS FOR THE TEST: Chest pain COPDX Heart Murmur Tobacco Smoking Palpitations Fatigue Syncope Edema HypertensionXDiabetes MellitusX Rheumatic Fever SOB GAMBOA Obesity Hyperlipidemia Family History HD Additional History CM,CHF PATIENT INFORMATION HEIGHT: 64 WEIGHT:209 GENDER: Female B/P:140/88 2-D/M-MODE INTERPRETATION: 2-D MEASUREMENTS OBSERVED VALUES IN CMS Right Ventricular Dimension (RVDd) 1.7 Interventricular Septum (Thickness)(IVsd) .9 Left Ventricular Internal Dimensions(LVIDd) 6.0 Left Ventricular Posterior Wall (Thickness)(LVPWd .9 Aortic Root 3.0 Aortic Cusp Separation 1.5 Left Atrial Dimensions (LAD) 3.4 2D 1. Left atrium is qualitatively moderately enlarged, left ventricle is normal size, there is mild concentric left ventricular hypertrophy present, visually estimated ejection fraction approximately 50% with no obvious regional wall motion abnormality, endocardial surfaces are poorly visualized. 2. The right atrium and right ventricle are normal size and contractility. 3. The aortic valve is minimally thickened and fibrosed. 4. The mitral valve leaflets are minimally thickened. 5. The tricuspid valve is structurally normal. 6. No significant pericardial effusion noted. DOPPLER INTERROGATION: Doppler interrogation of the aortic, mitral and tricuspid valvular presence of mild mitral and tricuspid regurgitation, tricuspid and jet velocity is insufficient for calculation of the right ventricular systolic pressure, grade 1 diastolic dysfunction seen with tissue Doppler evidence of raised left atrial pressure. CONCLUSION: 1. Moderately enlarged left atrium, normal left ventricular size, mild concentric left ventricular hypertrophy, visually estimated ejection fraction of 50% with no obvious regional wall motion abnormality, grade 1 diastolic dysfunction seen with tissue Doppler evidence of raised left atrial pressure. 2. Mild mitral and tricuspid regurgitation. 3. No significant pericardial effusion noted.
[2017-05-16] VITALS (8 sets, daily range): BP systolic 118–129; BP diastolic 52–66
--- NOTE | 2017-05-16 07:59 | ACUTE CARE PROGRESS NOTE (QUA) ---
Progress Notes Subjective Date 05/16/17 Time 0755 Note 62 yo WF in bed in NAD. No chest pains. Telemetry shows sinus rhythm without arrhythmias. Objective Findings Last VS-Temp:98.0 B/P:129/66 Pulse:64 Resp:20 SaO2:95 ROOM AIR Last weight lbs:213 oz:6 K.785 Method:Bed Scales Exam General appearance: alert, awake, no acute distress Cardiovascular: regular rate & rhythm Respiratory: clear to auscultation ABD: soft, no tenderness Extremities: moves all, no peripheral edema Neuro: alert, intact, oriented Reviewed: medications, vital signs, lab results Assessment/Plan Problem List 1. Cellulitis of labia majora 2. Uncontrolled diabetes mellitus 3. Arthritis 4. Hypothyroidism 5. COPD (chronic obstructive pulmonary disease) 6. HTN (hypertension) Assessment/Plan: controlled. Patient condition Stable Plan: Echo shows preserved EF without significant mitral regurgitation. No arrhythmias on telemetry. Continue current meds. OK from cardiology standpoint for discharge home. Follow up in office in one month. This inpt stay is expected to cross 2 MNs from start of care No at 0754
[2017-05-16 08:01] LABS: HEMOGLOBIN 9.9 g/dL (12.2-16.2)
[2017-05-16 08:02] LABS: LYMPH # 2.5 K/mm3 (0.7-4.5)
--- NOTE | 2017-05-16 08:05 | ACUTE CARE PROGRESS NOTE (QUA) ---
Progress Notes Subjective Date 05/16/17 Time 0802 Note She seems to be doing better this morning. She says she still feels puny. She is afebrile. Patient/family reports: feeling better, pain Objective Findings Laboratory Tests 05/16/17 0628: Sodium 135 L, Potassium 3.8, Chloride 100, Carbon Dioxide 29, BUN 11, Creatinine 1.0, Estimated Creat Clear 91, Estimated GFR (MDRD) 57 L, Glucose 218 H, Calcium 8.3 L, WBC 12.9 H, RBC 3.52 L, Hgb 9.9 L, Hct 30.9 L, MCV 87.9, RDW 13.8, Plt Count 300, Gran % 75.8, Gran # 9.8 H, Lymphocytes % 19.0, Monocytes % 5.2, Lymphocytes # 2.5, Monocytes # 0.7, PUBS MCHC 32.0, MCH 28.1 05/15/17 2133: POC Glucose 253 H 05/15/17 1733: POC Glucose 312 *H 05/15/17 1146: POC Glucose 292 H 05/15/17 1035: POC Glucose 310 *H Last VS-Temp:98.1 B/P:121/52 Pulse:56 Resp:20 SaO2:100 ROOM AIR Last weight lbs:213 oz:6 K.785 Method:Bed Scales Exam General appearance: normal appearance, alert, awake, no acute distress Reviewed: vital signs, lab results Assessment/Plan Problem List 1. Cellulitis of labia majora 2. Uncontrolled diabetes mellitus 3. Arthritis 4. Hypothyroidism 5. COPD (chronic obstructive pulmonary disease) 6. HTN (hypertension) Patient condition Improving, Stable Plan: continue current care This inpt stay is expected to cross 2 MNs from start of care Yes Comments: She seems to be doing a little better this morning. She was seen by cardiology and she will follow up with him in a month. We will make arrangements for her to have her dressing packed daily as an outpatient. She will likely be ready to go home tomorrow. at 0804
--- NOTE | 2017-05-16 08:45 | ACUTE CARE PROGRESS NOTE (QUA) ---
Progress Notes Subjective Date 05/16/17 Time 0832 Note Patient does not feel much better. Pain is not any better. She did sleep some; she has been eating; bowels moved twice and was diarrhea; Denies CP and SOB. Had I&D of the abscess Objective Findings Laboratory Tests 05/16/17 0635: POC Glucose 221 H 05/16/17 0628: Sodium 135 L, Potassium 3.8, Chloride 100, Carbon Dioxide 29, BUN 11, Creatinine 1.0, Estimated Creat Clear 91, Estimated GFR (MDRD) 57 L, Glucose 218 H, Calcium 8.3 L, WBC 12.9 H, RBC 3.52 L, Hgb 9.9 L, Hct 30.9 L, MCV 87.9, RDW 13.8, Plt Count 300, Gran % 75.8, Gran # 9.8 H, Lymphocytes % 19.0, Monocytes % 5.2, Lymphocytes # 2.5, Monocytes # 0.7, PUBS MCHC 32.0, MCH 28.1 05/15/17 2133: POC Glucose 253 H Cultures are pending 05/15/17 1733: POC Glucose 312 *H 05/15/17 1146: POC Glucose 292 H 05/15/17 1035: POC Glucose 310 *H Vital Signs Date Time Temp Pulse Resp B/P Pulse O2 O2 Flow FiO2 Ox Delivery Rate 05/16 828 98.1 56 20 121/52 100 05/16 0801 98.1 56 20 121/52 100 ROOM AIR 05/16 0411 98.0 64 20 129/66 95 ROOM AIR 05/16 0146 18 05/16 0017 98.3 60 18 129/65 96 ROOM AIR 05/15 2148 16 05/15 2020 98.4 59 16 100/54 96 ROOM AIR 05/15 2000 98.4 59 16 100/54 96 05/15 1720 58 18 110/64 98 05/15 1620 62 18 104/65 97 05/15 1520 57 18 119/64 98 05/15 1420 58 16 105/66 98 05/15 1350 97.4 58 16 113/66 97 05/15 1320 58 20 96/58 97 05/15 1250 58 16 109/70 96 05/15 1220 55 18 109/66 98 05/15 1205 60 18 113/70 98 05/15 1140 59 20 121/76 97 05/15 1125 57 18 136/86 96 05/15 1124 62 16 109/60 96 05/15 1110 97.8 64 18 142/79 98 05/15 1110 97.4 61 16 142/79 98 05/15 1110 97.4 61 16 142/79 98 05/15 1105 97.5 69 16 107/74 96 ROOM AIR 05/15 1100 65 16 114/80 97 ROOM AIR 05/15 1057 16 05/15 1052 16 05/15 1050 64 16 122/77 99 OXYGEN 05/15 1040 64 16 103/72 98 OXYGEN 05/15 1039 97.4 61 95/72 98 05/15 1030 97.4 61 16 95/72 98 OXYGEN Current Medications Levothyroxine Sodium 0.274 MG DAILY PO Lisinopril 40 MG DAILY PO Insulin Glargine 20 UNITS ONCE ONE SC (UNV) Oxycodone HCl 0 .STK-MED ONE .ROUTE (DC) Acetaminophen 0 .STK-MED ONE PO (DC) Oxycodone HCl 0 .STK-MED ONE .ROUTE (DC) Oxycodone HCl 0 .STK-MED ONE .ROUTE (DC) Magnesium Oxide 400 MG BID PO Montelukast Sodium 10 MG QHS PO Pravastatin Sodium 20 MG QHS PO Vancomycin HCl 1,750 MG Q24H IV Sodium Chloride 250 ML Insulin Human [rDNA origin] SEE ADMIN CRITERIA W/MEALS&HS SC Fluticasone/Salmeterol 1 PUFFS Q12H6 IN Morphine Sulfate 0 .STK-MED ONE .ROUTE (DC) Lidocaine 35 GM ONCE ONE TP (DC) Meperidine HCl 12.5 MG [id number] PRN IV (DC) Meperidine HCl 25 MG [id number] PRN IV (DC) Morphine Sulfate 2 MG [id number] PRN IV (DC) Ondansetron HCl 4 MG Q4HP PRN IV (DC) Sevoflurane 0 .STK-MED ONE IN (DC) Lidocaine HCl 0 .STK-MED ONE IJ (DC) Ondansetron HCl 0 .STK-MED ONE .ROUTE (DC) Propofol 0 .STK-MED ONE IV (DC) Lactated Ringer's 1,000 ML .STK-MED ONE IV (DC) Fentanyl Citrate 0 .STK-MED ONE IV (DC) Midazolam HCl 0 .STK-MED ONE .ROUTE (DC) Fluoxetine HCl 20 MG DAILY PO Carvedilol 25 MG BID PO Levothyroxine Sodium 0.137 MG DAILY PO (DC) Insulin Human [rDNA origin] 0 .STK-MED ONE SC (DC) Metformin HCl 500 MG BIDD PO Oxycodone HCl 1 MG Q4HP PRN PO Oxycodone HCl 2 MG Q4HP PRN PO Sodium Chloride 10 ML PRN PRN IV Diagnostic Test (Pha) 1 EACH W/MEALS&HS FS Insulin Human [rDNA origin] SEE ADMIN CRITERIA W/MEALS&HS SC (DC) Potassium Chloride/Sodium Chloride 1,000 ML .[id number] IV Acetaminophen 650 MG Q4HP PRN PO Influenza Virus Vaccine Quadrival 0.5 ML PRN PRN IM Nicotine 21 MG DAILYP PRN TD Ondansetron HCl 4 MG Q6HP PRN IV Piperacillin Sod/Tazobactam Sod 3.375 GM Q6 IV Sodium Chloride 50 ML 05/15 1500 05/15 2300 05/16 0700 Intake Total 1515 480 750 Output Total 0 Balance 1515 480 750 Intake, IV 50 750 Intake, Oral 1465 480 Intake, Tube 0 Irrigant Output, 0 Emesis Output, 0 Estimated Blood Loss Output, Other 0 Output, Urine 0 Patient 209 lb 213 lb Weight Last VS-Temp:98.1 B/P:121/52 Pulse:56 Resp:20 SaO2:100 ROOM AIR Last weight lbs:213 oz:6 K.785 Method:Bed Scales Exam General appearance: alert, no acute distress Cardiovascular: regular rate & rhythm Respiratory: clear to auscultation (bilat anterior and posterior) ABD: soft, no tenderness, bowel sounds present Genitourinary: labial edema is less today; iodoform packing in place; some noted drainage Extremities: no peripheral edema Neuro: alert, oriented Assessment/Plan Problem List 1. Cellulitis of labia majora 2. Uncontrolled diabetes mellitus 3. Arthritis 4. Hypothyroidism 5. COPD (chronic obstructive pulmonary disease) 6. HTN (hypertension) 7. Status post incision and drainage Patient condition Improving Plan: daily dressing changes with iodoform packing; pain management; continue IV vanc; cultures pending This inpt stay is expected to cross 2 MNs from start of care Yes (Mary Pardo APRN) Assessment/Plan Problem List 1. Cellulitis of labia majora 2. Uncontrolled diabetes mellitus 3. Arthritis 4. Hypothyroidism 5. COPD (chronic obstructive pulmonary disease) 6. HTN (hypertension) 7. Status post incision and drainage Comments: Patient seen and agree with above note. (Kishor Shabazz MD) at 0844 at 0821
[2017-05-17] VITALS (9 sets, daily range): BP systolic 106–134; BP diastolic 55–69
--- NOTE | 2017-05-17 07:35 | ACUTE CARE PROGRESS NOTE (QUA) ---
Progress Notes Subjective Date 05/17/17 Time 0727 Note feeling better with less pain. ambulating to bathroom without problems; able to sit upright; Denies CP and SOB; bowels are moving and voiding QS Labs/cultures are pending Objective Findings Laboratory Tests 05/17/17 0652: POC Glucose 184 H 05/17/17 0614: Sodium 137, Potassium 4.2, Chloride 103, Carbon Dioxide 29, BUN 9, Creatinine 1.0, Estimated Creat Clear 95, Estimated GFR (MDRD) 57 L, Glucose 172 H, Calcium 8.2 L 05/16/17 2104: POC Glucose 209 H 05/16/17 2030: Vancomycin Trough 12.5 05/16/17 1704: POC Glucose 258 H 05/16/17 1139: POC Glucose 317 *H Vital Signs Date Time Temp Pulse Resp B/P Pulse O2 O2 Flow FiO2 Ox Delivery Rate 05/17 0420 98.3 58 16 106/55 96 ROOM AIR 05/17 0008 98.5 51 16 109/56 97 ROOM AIR 05/16 2201 18 05/16 2016 98.4 61 18 119/60 95 ROOM AIR 05/16 1939 98.6 58 20 118/62 95 05/16 1556 98.6 58 20 118/62 95 ROOM AIR 05/16 1447 24 05/16 1127 98.0 60 18 118/61 97 ROOM AIR 05/16 0836 20 05/16 0828 98.1 56 20 121/52 100 05/16 0801 98.1 56 20 121/52 100 ROOM AIR Current Medications Oxycodone HCl 0 .STK-MED ONE .ROUTE (DC) Insulin Human [rDNA origin] 0 .STK-MED ONE SC (DC) Oxycodone HCl 0 .STK-MED ONE .ROUTE (DC) Insulin Human [rDNA origin] SEE ADMIN CRITERIA W/MEALS&HS SC Insulin Human [rDNA origin] 0 .STK-MED ONE SC (DC) Insulin Glargine 0 .STK-MED ONE SC (DC) Levothyroxine Sodium 0.274 MG DAILY PO Lisinopril 40 MG DAILY PO Insulin Glargine 20 UNITS ONCE ONE SC (DC) Oxycodone HCl 5 MG Q4HP PRN PO Oxycodone HCl 10 MG Q4HP PRN PO Oxycodone HCl 0 .STK-MED ONE .ROUTE (DC) Magnesium Oxide 400 MG BID PO Montelukast Sodium 10 MG QHS PO Pravastatin Sodium 20 MG QHS PO Vancomycin HCl 1,750 MG Q24H IV Sodium Chloride 250 ML Insulin Human [rDNA origin] SEE ADMIN CRITERIA W/MEALS&HS SC (DC) Fluticasone/Salmeterol 1 PUFFS Q12H6 IN Fluoxetine HCl 20 MG DAILY PO Carvedilol 25 MG BID PO Metformin HCl 500 MG BIDD PO Oxycodone HCl 1 MG Q4HP PRN PO (DC) Oxycodone HCl 2 MG Q4HP PRN PO (DC) Sodium Chloride 10 ML PRN PRN IV Diagnostic Test (Pha) 1 EACH W/MEALS&HS FS Potassium Chloride/Sodium Chloride 1,000 ML .[id number] IV Acetaminophen 650 MG Q4HP PRN PO Influenza Virus Vaccine Quadrival 0.5 ML PRN PRN IM Nicotine 21 MG DAILYP PRN TD Ondansetron HCl 4 MG Q6HP PRN IV Piperacillin Sod/Tazobactam Sod 3.375 GM Q6 IV Sodium Chloride 50 ML 05/16 1500 05/16 2300 05/17 0700 Intake Total 480 240 Output Total Balance 480 240 Intake, Oral 480 240 Patient 221 lb Weight Last VS-Temp:98.3 B/P:106/55 Pulse:58 Resp:16 SaO2:96 ROOM AIR Last weight lbs:221 oz:0 K.244 Method:Bed Scales Exam General appearance: alert, active, no acute distress Cardiovascular: regular rate & rhythm Respiratory: clear to auscultation (bilat anterior and posterior) ABD: non-distended, soft, no tenderness, bowel sounds present Genitourinary: less labia edema; draining Extremities: no peripheral edema Neuro: alert, oriented Assessment/Plan Problem List 1. Cellulitis of labia majora 2. Uncontrolled diabetes mellitus 3. Arthritis 4. Hypothyroidism 5. COPD (chronic obstructive pulmonary disease) 6. HTN (hypertension) 7. Status post incision and drainage Patient condition Improving Plan: Home soon This inpt stay is expected to cross 2 MNs from start of care Yes (Mary Pardo APRN) Assessment/Plan Problem List 1. Cellulitis of labia majora 2. Uncontrolled diabetes mellitus 3. Arthritis 4. Hypothyroidism 5. COPD (chronic obstructive pulmonary disease) 6. HTN (hypertension) 7. Status post incision and drainage Comments: Patient seen and agree with above note, awaiting culture results. (Kishor Shabazz MD) at 1371 at [phone]
--- NOTE | 2017-05-17 07:50 | ACUTE CARE PROGRESS NOTE (QUA) ---
Progress Notes Subjective Date 05/17/17 Time 0749 Assessment/Plan Problem List 1. Cellulitis of labia majora 2. Uncontrolled diabetes mellitus 3. Arthritis 4. Hypothyroidism 5. COPD (chronic obstructive pulmonary disease) 6. HTN (hypertension) 7. Status post incision and drainage This inpt stay is expected to cross 2 MNs from start of care Yes Antibiotic Stewardship (2) Current Culture Results Microbiology 05/15 UNK LABIA: Antimicrobic Susceptibility - RECD 05/15 UNK LABIA: Anaerobic Culture Result 4 - RECD 05/15 UNK LABIA: Anaerobic Culture Result 3 - RECD 05/15 UNK LABIA: Anaerobic Culture Result 2 - RECD 05/15 UNK LABIA: Anaerobic Culture Result 1 - RECD 05/15 UNK LABIA: Anaerobic Culture - RECD 05/15 UNK LABIA: Abscess Culture - RECD 05/14 1610 BLOOD: Anaerobic Blood Culture - RECD 05/14 1610 BLOOD: Aerobic Blood Culture - RECD Infxn that will respond? Yes (WBC DECREASED) Right drug,dose,and route? Yes More targeted antbx? No (PENDING CULTURE RESULTS) at 0750
[2017-05-17 07:57] LABS: HEMOGLOBIN 9.2 g/dL (12.2-16.2)
[2017-05-17 07:58] LABS: LYMPH # 2.5 K/mm3 (0.7-4.5); LYMPH % 22.6 % (10-50.0)
--- NOTE | 2017-05-17 08:15 | CONSULT NOTE ---
Pharmacokinetic Consult Date of consult: 05/17/17 Time of consult: 812 Referring provider: DR. WORLEY Reason for consult: VANCOMYCIN TROUGH LEVEL Allergies: Coded Allergies: naproxen (From ALEVE) (Intermediate, K-VOIOXS-NUSM/THROAT 05/15/17) oxytetracycline (From TERRAMYCIN) (Intermediate, 05/15/17) tetracycline (Intermediate, NA-SEDATION 05/15/17) Home Medications: Active Scripts Lisinopril (Lisinopril 40MG) 40 MG PO BID #60 TAB Ref 1 Prov: 01/20/16 Fluoxetine Hcl (Fluoxetine) 20 MG PO DAILY #30 TAB Ref 2 Prov: 01/20/16 Reported Medications Levothyroxine Sodium (Levothyroxine 0.137MG) 0.274 MG PO DAILY #60 TAB Carvedilol (Carvedilol 25MG) 25 MG PO BID Cholecalciferol (Vitamin D3) (Vitamin D) 50,000 UNIT PO WEEKLY Multivits-Min/Iron/FA/Lutein (Centrum Silver Women Tablet) 1 EACH PO DAILY METFORMIN HCL (Metformin) 1,000 MG PO BID Dicyclomine Hcl (Dicyclomine Tab) 20 MG PO QIDP PRN DIARRHEA HYDROCHLOROTHIAZIDE (Hydrochlorothiazide) 25 MG PO DAILY FLUTICASONE/SALMETEROL (Advair 250-50 Diskus) 1 PUFF IN BID #60 Montelukast Sodium 10 MG PO QHS #30 Rosuvastatin Calcium (Crestor) 10 MG PO QHS #30 Height (feet): 5 Height (inches): 2.00 Medical History: CAD? No Angina: No [place]: No Hypertension? Yes Hyperlipidemia? Yes CHF? Yes DVT? No PE? No COPD? Yes Asthma? Yes Anemia? No GERD? Yes Gastric ulcers? No GI Bleed? No Hernia? No Thyroid Problems? Yes Hypothyroidism? Yes CVA? No Seizures? No Diabetes? Yes Insulin Dependent: No Insulin Pump: No Home FSBS? Yes Renal Insuffiency? No UTI? No Stones? No BPH? No GB Disease: Yes Nephritic Syndrome? No Asplenia? No Hepatitis? No Sickle Cell Disease? No Arthritis? Yes Migraines? No Cataracts? No Glaucoma? No MRSA? No HIV? No TB? No Anxiety? No Depression? Yes Cancer? No More? No Labs: Laboratory Tests 05/17/17 0652: POC Glucose 184 H 05/17/17 0614: Sodium 137, Potassium 4.2, Chloride 103, Carbon Dioxide 29, BUN 9, Creatinine 1.0, Estimated Creat Clear 95, Estimated GFR (MDRD) 57 L, Glucose 172 H, Calcium 8.2 L, WBC 11.0 H, RBC 3.29 L, Hgb 9.2 L, Hct 29.1 L, MCV 88.4, RDW 13.4, Plt Count 243, Gran % 71.0, Gran # 7.8, Lymphocytes % 22.6, Monocytes % 6.4, Lymphocytes # 2.5, Monocytes # 0.7, PUBS MCHC 31.6 L, MCH 28.0 05/16/17 2104: POC Glucose 209 H 05/16/17 2030: Vancomycin Trough 12.5 05/16/17 1704: POC Glucose 258 H 05/16/17 1139: POC Glucose 317 *H Problem List: 1. Cellulitis of labia majora Plan: BASED ON VANCOMYCIN TROUGH LEVEL LAST NIGHT AND PATIENT FACTORS, RECOMMEND CONTINUING VANCOMYCIN 1750 MG IV Q24H. PHARMACY WILL CONTINUE TO MONITOR DAILY AND ADJUST APPROPRIATE. at 0815
[2017-05-18 03:33] VITALS: BP 131/71
[2017-05-18 07:32] VITALS: BP 113/64
--- NOTE | 2017-05-18 08:31 | ACUTE CARE PROGRESS NOTE (QUA) ---
Progress Notes Subjective Date 05/18/17 Time 0740 Note Pt up ad harrison in room. She reports that her pain is much improved "just sore now " and she sat up in the chair for several hours yesterday. She is tolerating regular diet, denies N/V/D, notes that she is voiding normally and BM x 1. Objective Findings Laboratory Tests 05/18/17 0628: POC Glucose 186 H 05/17/17 2018: POC Glucose 226 H 05/17/17 1659: POC Glucose 183 H 05/17/17 1152: POC Glucose 243 H Vital Signs Date Time Temp Pulse Resp B/P Pulse O2 O2 Flow FiO2 Ox Delivery Rate 05/18 0732 98.1 61 20 113/64 97 ROOM AIR 05/18 0333 98.3 66 18 131/71 94 ROOM AIR 05/17 2359 98.4 65 18 110/63 99 ROOM AIR 05/17 1939 98.2 66 20 134/69 98 ROOM AIR 05/17 1937 98.2 66 20 134/69 98 05/17 1602 98.3 56 20 118/58 98 ROOM AIR 05/17 1556 18 05/17 1204 98.4 58 18 120/62 98 ROOM AIR Last VS-Temp:98.1 B/P: 113/64 Pulse:61 Resp:20 SaO2:97 ROOM AIR Last weight lbs: 222 oz: 7 K.896 Method: Bed Scales 05/15/17 Wound culture: Final Result: MRSA - see sensitivities Exam General appearance: alert, awake, no acute distress Cardiovascular: regular rate & rhythm, normal peripheral pulses Respiratory: CTAB A&P ABD: non-distended, no rebound, soft, no tenderness, no guarding, no organomegaly, no palpable mass, bowel sounds present Extremities: moves all, no peripheral edema, warm, no calf tenderness Neuro: alert, oriented, speech clear, no focal deficit Reviewed: medications, vital signs, lab results, consult note, nursing notes Assessment/Plan Problem List 1. Cellulitis of labia majora 2. Uncontrolled diabetes mellitus 3. Arthritis 4. Hypothyroidism 5. COPD (chronic obstructive pulmonary disease) 6. HTN (hypertension) 7. Status post incision and drainage Patient condition Improving Plan: Pt improving. Wound culture results showing MRSA sensitive to Vanc. At recommendation of pharmacy, will discuss d/c Zosyn with Dr. Shabazz. This inpt stay is expected to cross 2 MNs from start of care Yes (ELODIA MARQUEZ APRN) Assessment/Plan Problem List 1. Cellulitis of labia majora 2. Uncontrolled diabetes mellitus 3. Arthritis 4. Hypothyroidism 5. COPD (chronic obstructive pulmonary disease) 6. HTN (hypertension) 7. Status post incision and drainage Comments: Patient seen and agree with above note, discharge home today with oral Bactrim and daily wound dressings at [facility]. Follow up with Dr. Mckeon. (Kishor Shabazz MD) at 0830 at 0857
[2017-05-18 10:55] VITALS: BP 113/64
--- NOTE | 2017-05-19 11:47 | DISCHARGE SUMMARY STANDARD ---
Discharge Summary (FCA2) Date of admission: 05/14/17 Date of discharge: 05/18/17 Problem List: 1. Cellulitis of labia majora 2. Uncontrolled diabetes mellitus 3. Arthritis 4. Hypothyroidism 5. COPD (chronic obstructive pulmonary disease) 6. HTN (hypertension) 7. Status post incision and drainage 8. Abnormal EKG 9. Prolonged QT interval History of present illness: Ms Current is a 62 year old female with a history of DM, hypothyroidism, depression, and COPD who presented to [facility] ER with a 4 day history of swelling and pain of her labia. She stated that she had cysts before which resolved without treatment. She had been applying moist heat to the area and it progressively worsened. She had a fever. She was noted to be a diabetic but was not monitoring her BS. In the ER she was found to have an abscess with edema of the labia. Dr. Mckeon was consulted. She was admitted for ABX and I&D. Exam on admission: 1ST Vital Signs Result Date Time Pulse Ox 98 05/14 1457 B/P 140/88 05/14 1457 Temp 97.7 05/14 1457 Pulse 70 05/14 1457 Resp 18 05/14 1457 O2 Delivery ROOM AIR 05/14 1737 Exam: General appearance: alert, no acute distress, obese Eyes: anicteric, pupils reactive to light ENT: mucous membranes moist, pharynx normal Neck: non-tender, no carotid bruit, full range of motion, supple, lymphadenopathy (absent), thyroid (normal) Cardiovascular: no peripheral edema, frequent ectopy Respiratory: clear to auscultation (bilat anterior and posterior) ABD: soft, no tenderness, bowel sounds present, obese Extremities: moves all, no calf tenderness, no pedal edema Skin: edema of right labia and lauren area Neuro: alert, oriented, speech clear Hospital Course: On admission patient was started on IV vanc, sliding scale insulin, and pain management. She was seen by Dr. Mckeon who performed an I&D and packing of the right labial abscess on 05/15/17. Cardiology was consulted because of an abnormal EKG. EKG showed sinus bradycardia with LAD with incomplete LEFT bundle branch block and prolonged QT interval at 504 ms. Echo showed preserved EF without significant mitral regurgitation. Patient was placed on telemetry and showed no arrhythmias. She received one dose of IV Magnesium. She continued with carvedilol and lisinopril. Patient 's pain gradually improved allowing her to sit and increase ambulation. Dressing with packing were changed daily. She was placed on Lantus along with the sliding scale and BS improved. On 05/18/17 she was discharged to home. Laboratory data this visit: 05/15/17 0619: POC Glucose 293 H 05/15/17 0615: Sodium 133 L, Potassium 4.4, Chloride 99, Carbon Dioxide 27, BUN 12, Creatinine 1.1 H, Estimated Creat Clear 80, Estimated GFR (MDRD) 51 L, Glucose 285 H, Calcium 8.5, WBC 17.3 H, RBC 4.06 L, Hgb 11.7 L, Hct 35.4 L, MCV 87.3, RDW 12.5, Plt Count 335, MPV 7.9, Gran % 78.6, Gran # 13.6 H, Lymphocytes % 13.5, Monocytes % 5.7, Eosinophils % 2.0, Basophils % 0.3, Lymphocytes # 2.3, Monocytes # 1.0, Eosinophils # 0.3, Basophils # 0.1, PUBS MCHC 33.1, MCH 28.9 05/14/17 2059: POC Glucose 314 *H 05/14/17 1731: POC Glucose 283 H 05/14/17 1613: POC Glucose 311 *H 05/14/17 1610: Lactic Acid 1.7 05/14/17 1610: Sodium 131 L, Potassium 3.9, Chloride 95 L, Carbon Dioxide 28, BUN 11, Creatinine 1.1 H, Estimated Creat Clear 88, Estimated GFR (MDRD) 51 L, Glucose 319 H, Calcium 9.3, Total Bilirubin 0.7, AST 6 L, ALT 12, Alkaline Phosphatase 127 H, Total Protein 9.0 H, Albumin 2.9 L, Globulin 6.1 H, Albumin/Globulin Ratio 0.5 L, WBC 15.9 H, RBC 4.50, Hgb 12.9, Hct 39.4, MCV 87.7, RDW 12.4, Plt Count 355, MPV 8.0, Gran % 80.3 H, Gran # 12.8 H, Total Counted 100, Lymphocytes % 12.5, Monocytes % 5.1, Eosinophils % 1.8, Basophils % 0.3, Neutrophils 76, Band Neutrophils 1, Lymphocytes (Manual) 15, Lymphocytes # 2.0, Monocytes (Manual) 8, Monocytes # 0.8, Eosinophils # 0.3, Basophils # 0.0, Platelet Estimate NORMAL, PUBS MCHC 33.0, MCH 28.9 05/16/17 0628: Sodium 135 L, Potassium 3.8, Chloride 100, Carbon Dioxide 29, BUN 11, Creatinine 1.0, Estimated Creat Clear 91, Estimated GFR (MDRD) 57 L, Glucose 218 H, Calcium 8.3 L, WBC 12.9 H, RBC 3.52 L, Hgb 9.9 L, Hct 30.9 L, MCV 87.9, RDW 13.8, Plt Count 300, Gran % 75.8, Gran # 9.8 H, Lymphocytes % 19.0, Monocytes % 5.2, Lymphocytes # 2.5, Monocytes # 0.7, PUBS MCHC 32.0, MCH 28.109/ 0614: Sodium 137, Potassium 4.2, Chloride 103, Carbon Dioxide 29, BUN 9, Creatinine 1.0, Estimated Creat Clear 95, Estimated GFR (MDRD) 57 L, Glucose 172 H, Calcium 8.2 L > ABCESS CULTURE Final 05/18/17-0653 Organism 1 STAPHYLOCOCCUS AUREUS 1. STAPHYLOCOCCUS AUREUS RX AB M.I.C ROUTE COST I ------ -- --------- ----- ------ TRIMETH/SULFAMETH (BACTRIM) S <=10 CLINDAMYCIN S <=0.25 ERYTHROMYCIN R >=8 GENTAMICIN S <=0.5 LEVOFLOXACIN R 4 OXACILLIN R >=4 BENZYLPENICILLIN R >=0.5 RIFAMPIN S <=0.5 TETRACYCLINE S <=1 VANCOMYCIN S 1 THIS IS METHICILLIN RESISTANT STAPH AUREUS CALL MRSA RESULTS TO CAREGIVER Imagin05/15/17 ECHO CONCLUSION: 1. Moderately enlarged left atrium, normal left ventricular size, mild concentric left ventricular hypertrophy, visually estimated ejection fraction of 50% with no obvious regional wall motion abnormality, grade 1 diastolic dysfunction seen with tissue Doppler evidence of raised left atrial pressure. 2. Mild mitral and tricuspid regurgitation. 3. No significant pericardial effusion noted. 05/15/17 CXR IMPRESSION: Stable chest nothing definitely acute. Discharge medications: Continue taking these medications: METFORMIN HCL (Metformin) 1,000 MG TABLET 1,000 MILLIGRAM ORAL TWICE A DAY Lisinopril (Lisinopril 40MG) 40 MG TABLET 40 MILLIGRAM ORAL TWICE A DAY Qty = 60 Fluoxetine Hcl (Fluoxetine) 20 MG TABLET 20 MILLIGRAM ORAL DAILY Qty = 30 Montelukast Sodium (Montelukast Sodium) 10 MG TABLET 10 MILLIGRAM ORAL AT BEDTIME NIGHTLY Qty = 30 Rosuvastatin Calcium (Crestor) 10 MG TABLET 10 MILLIGRAM ORAL AT BEDTIME NIGHTLY Qty = 30 Levothyroxine Sodium (Levothyroxine 0.137MG) 137 MCG TABLET 0.274 MILLIGRAM ORAL DAILY Qty = 60 FLUTICASONE/SALMETEROL (Advair 250-50 Diskus) 1 EACH BLST.W.DEV 1 PUFF IN VITRO TWICE A DAY Qty = 60 Dicyclomine Hcl (Dicyclomine Tab) 20 MG TABLET 20 MILLIGRAM ORAL FOUR TIMES A DAY NEEDED as needed for DIARRHEA HYDROCHLOROTHIAZIDE (Hydrochlorothiazide) 25 MG TABLET 25 MILLIGRAM ORAL DAILY Carvedilol (Carvedilol 25MG) 25 MG TABLET 25 MILLIGRAM ORAL TWICE A DAY Cholecalciferol (Vitamin D3) (Vitamin D) 50,000 UNIT CAPSULE 50,000 UNIT ORAL Q WEEK (168 HRS) Multivits-Min/Iron/FA/Lutein (Centrum Silver Women Tablet) 1 EACH TABLET 1 EACH ORAL DAILY Start taking the following new medications: OXYCODONE HCL (Oxycodone) 5 MG TABLET 5 MILLIGRAM ORAL EVERY 4 HOURS NEEDED as needed for MODERATE TO SEVERE PAIN Qty = 12 No Refills SULFAMETHOXAZOLE W/TRIMETHOPRI (Bactrim Ds Tab) 1 TABLET TABLET 1 TABLET ORAL TWICE A DAY Qty = 14 No Refills Disposition: Patient discharged to home in stable and satisfactory condition Follow up: [address] Scar Mckeon Comments, Specifics r/t O2, Equipment, Antibiotics, etc: Patient needs daily wound dressing changes at [facility] Care Management Consult for: DISCHARGE PLANNING Activity: Cont Current activity Diet: Continue same diet Discharge to: HOME Agency needed? N Patient was to start oral bactrim and continue with meds as per reconciliation sheet at 1141
== END 2017-05-18 10:50 | disposition home or self-care (01) | DRG 747 ==
LOC: ER 14:45 → 2ND 16:51
PROVIDERS: Emergency Medicine; Family Medicine
PROC: 0U9MXZX Drainage of Vulva, External Approach, Diagnostic (ICD-10-PCS; principal; 2017-05-15)
DX: N76.4 Abscess of vulva (principal); E11.65 Type 2 diabetes mellitus with hyperglycemia; I10 Essential (primary) hypertension; B95.62 Methicillin resistant Staphylococcus aureus infection as the cause of diseases classified elsewhere; J44.9 Chronic obstructive pulmonary disease, unspecified; R94.31 Abnormal electrocardiogram [ECG] [EKG]

== ENCOUNTER 2017-05-19 10:50 | Outpatient (CLI) | payer MEDICARE | END 2017-05-19 11:05 | disposition home or self-care (01) | LOC: COP 10:50 | DX: N76.4 Abscess of vulva (principal) ==